=== PATIENT | female | born 1990 | race Two or more races ===

== ENCOUNTER 2017-06-02 01:40 | Emergency (ER) | payer OTHER ==
[~2017-06-02] VITALS: Ht 177.8 cm; Wt 113.4 kg
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
[2017-06-02 02:00] VITALS: BP 128/78
[2017-06-02 04:02] VITALS: BP 122/76
[2017-06-02 04:22] VITALS: BP 120/78
== END 2017-06-02 04:22 | disposition home or self-care (01) ==
LOC: EDBD 01:40 → EMR 01:56
DX: F10.929 Alcohol use, unspecified with intoxication, unspecified (principal)
CPT/HCPCS: 36415; 80300; 96361; 96374; 99284; G0480; J2405; 80329